=== PATIENT | female | born 1940 | race Caucasian/White ===

== ENCOUNTER 2016-08-16 13:33 | Outpatient (CLI) | payer MEDICARE | END 2016-08-16 13:34 | disposition home or self-care (01) | DX: M50.322 Other cervical disc degeneration at C5-C6 level (principal); M47.9 Spondylosis, unspecified; M40.202 Unspecified kyphosis, cervical region ==

== ENCOUNTER 2018-07-10 13:26 | Outpatient (CLI) | payer MEDICARE ==
--- NOTE | 2018-07-11 01:37 | XRAY Report ---
Reason: CHRONIC PAIN OF LEFT KNEE Procedure Date: 07/10/2018 Accession Number: [id number] Procedure: XR - Knee 4 View LT CPT Code: FULL RESULT: EXAM: LEFT KNEE RADIOGRAPHY EXAM DATE: 07/10/2018 02:50 PM. CLINICAL HISTORY: CHRONIC PAIN OF LEFT KNEE. COMPARISON: None. TECHNIQUE: 4 views. FINDINGS: Bones: No evidence of acute fracture. Osseous structures appear osteopenic. Joints: Mild osteoarthritis. No effusion. Soft Tissues: Normal. No soft tissue swelling. IMPRESSION: Mild osteoarthritis. RADIA
== END 2018-07-10 13:27 | disposition home or self-care (01) ==
LOC: DI 13:26
PROVIDERS: ATTEND Family Medicine
DX: M17.12 Unilateral primary osteoarthritis, left knee (principal); G89.29 Other chronic pain

== ENCOUNTER 2019-01-31 19:27 | Outpatient (CLI) | payer MEDICARE | END 2019-01-31 19:28 | disposition EMS.NT | LOC: EMS 19:27 | PROVIDERS: ATTEND Surgery | DX: S90.472A Other superficial bite of left great toe, initial encounter (principal); W55.81XA Bitten by other mammals, initial encounter; Y92.008 Other place in unspecified non-institutional (private) residence as the place of occurrence of the external cause ==

== ENCOUNTER 2020-01-23 10:05 | Outpatient (CLI) | payer MEDICARE ==
[2020-01-23 15:15] LABS: HGB - HEMOGLOBIN 13.2 g/dL (12.0-16.0); MEAN CORPUSCULAR HEMOGLOBIN 31.4 pg (27.0-31.0); MEAN CORPUSCULAR HGB CONC 33.2 g/dL (32.0-36.0); MEAN CORPUSCULAR VOLUME 94.5 fL (81.0-99.0); MEAN PLATELET VOLUME 9.5 fL (7.9-10.8); RED BLOOD COUNT 4.2 10^6/uL (4.20-5.40); RED CELL DISTRIBUTION WIDTH 13.5 % (12.0-15.0); WHITE BLOOD COUNT 5.6 x10^3/uL (4.8-10.8)
[2020-01-23 15:30] LABS: ALBUMIN 3.7 g/dL (3.2-5.5); ALBUMIN/GLOBULIN RATIO 1.4 (1.0-2.2); BILIRUBIN,TOTAL 0.8 mg/dL (0.2-1.0); CREATININE 0.8 mg/dL (0.4-1.0); TOTAL PROTEIN 6.4 g/dL (6.7-8.2)
[2020-01-23 15:56] LABS: HB2 TOTAL 14.2 g/dL; HEMOGLOBIN A1C 0.7 g/dL; HEMOGLOBIN A1C % 6.7 % (4.6-6.2)
== END 2020-01-23 10:06 | disposition home or self-care (01) ==
LOC: LAB.S 10:05
PROVIDERS: ATTEND Family Medicine
DX: I10 Essential (primary) hypertension (principal); E11.42 Type 2 diabetes mellitus with diabetic polyneuropathy
CPT/HCPCS: 36415; 80053; 83036; 85027

== ENCOUNTER 2021-05-01 14:44 | Outpatient (CLI) | payer MEDICARE ==
[2021-05-01 20:15] LABS: ESTIMATED AVERAGE GLUCOSE 137 mg/dL (70-100); HEMOGLOBIN A1c% 6.4 % (4.27-6.07)
== END 2021-05-01 14:45 | disposition home or self-care (01) ==
LOC: LAB.S 14:44
PROVIDERS: ATTEND Family Medicine
DX: E11.42 Type 2 diabetes mellitus with diabetic polyneuropathy (principal)
CPT/HCPCS: 36415; 83036

== ENCOUNTER 2021-10-16 08:00 | Outpatient (CLI) | payer MEDICARE ==
--- NOTE | 2021-10-16 15:30 | XRAY Report ---
PROCEDURE: Lumbar Spine 2 View INDICATIONS: LEG WEAKNESS TECHNIQUE: 2 views of the lumbar spine were acquired. COMPARISON: None. FINDINGS: Bones: 5 nonrib-bearing vertebral elements are present. L3-4 and L4-5 demonstrate disc space narrowin g and large osteophytes anteriorly. There is facet arthrosis at L4-5 and L5-S1. Grade 1 retrolisthesi s at L3-4. There is leftward curvature of the lumbar spine with a Rhoades angle of 16 degrees. Soft tissues: Overlying bowel gas pattern is normal. No suspicious soft tissue calcifications. IMPRESSION: 1. Leftward curvature of the lumbar spine with a Rhoades angle of 16 degrees. 2. Lumbar spondylosis with disc disease most prominent at L3-4 and L4-5. 3. Facet arthrosis at L4-5 and L5-S1. Reviewed by: Flvaio Read on 10/16/2021 3:29 PM PDT Approved by: Flavio Read on 10/16/2021 3:29 PM PDT Station ID: [id number]
== END 2021-10-16 23:59 | disposition home or self-care (01) ==
LOC: DI.S 08:00
PROVIDERS: ATTEND Family Medicine
DX: M47.816 Spondylosis without myelopathy or radiculopathy, lumbar region (principal); M43.16 Spondylolisthesis, lumbar region; M47.817 Spondylosis without myelopathy or radiculopathy, lumbosacral region; M48.061 Spinal stenosis, lumbar region without neurogenic claudication

== ENCOUNTER 2022-08-13 21:33 | Outpatient (CLI) | payer MEDICARE | END 2022-08-13 23:59 | disposition EMS.NT | LOC: EMS 21:33 | DX: Z03.89 Encounter for observation for other suspected diseases and conditions ruled out (principal) ==

== ENCOUNTER 2022-09-22 10:04 | Outpatient (CLI) | payer MEDICARE ==
--- NOTE | 2022-09-22 11:58 | XRAY Report ---
PROCEDURE: Abdomen 2 View X-Ray INDICATIONS: INCONTINENCE OF FECAL URGENCY TECHNIQUE: 2 views of the abdomen were acquired. COMPARISON: None FINDINGS: Surgical changes and devices: Cholecystectomy clips. Bowel: No pneumoperitoneum. The bowel gas pattern is normal. Moderate colonic stool load. Soft tissues: No masses; visualized solid organ contours appear normal in size. No suspicious abdom inal calcifications. Bones: No suspicious bony abnormalities. IMPRESSION: Moderate colonic stool load. Reviewed by: Miquel Ashraf on 09/22/2022 11:56 AM PDT Approved by: Miquel Ashraf on 09/22/2022 11:56 AM PDT Station ID: [id number]
== END 2022-09-22 10:05 | disposition home or self-care (01) ==
LOC: DI.S 10:04
PROVIDERS: ATTEND Family Medicine
DX: R15.9 Full incontinence of feces (principal); R15.2 Fecal urgency

== ENCOUNTER 2022-11-17 11:15 | Outpatient (CLI) | payer MEDICARE | END 2022-11-17 23:59 | disposition EMS.NT | LOC: EMS 11:15 | DX: R53.1 Weakness (principal) ==

== ENCOUNTER 2022-11-18 14:12 | Outpatient (CLI) | payer MEDICARE ==
--- NOTE | 2022-11-18 18:00 | XRAY Report ---
PROCEDURE: Shoulder 2 View RT INDICATIONS: ACUTE PAIN OF RIGHT SHOULDER TECHNIQUE: 3 views of the shoulder were acquired. COMPARISON: None. FINDINGS: Bones: No acute fractures or dislocations. No suspicious bony lesions. Visualized ribs appear inta ct. Moderate acromioclavicular joint osteoarthrosis. Soft tissues: No suspicious soft tissue calcifications. IMPRESSION: Moderate acromioclavicular joint osteoarthrosis. No acute osseous abnormality. If symptoms persist or there is continued clinical concern, further evaluation with MRI or CT may be helpful. Reviewed by: Sanjeev Sanchez MD on 11/18/2022 5:59 PM PDT Approved by: Sanjeev Sanchez MD on 11/18/2022 5:59 PM PDT Station ID: [id number]
== END 2022-11-18 14:13 | disposition home or self-care (01) ==
LOC: DI.S 14:12
PROVIDERS: ATTEND Family Medicine
DX: M19.011 Primary osteoarthritis, right shoulder (principal)